=== PATIENT | male | born 1945 | race Caucasian/White ===

== ENCOUNTER 2017-03-24 10:02 | Emergency (ER) | payer OTHER, MEDICAID ==
[~2017-03-24] VITALS: Ht 160 cm; Wt 73.0 kg
[~2017-03-24 10:02] MED LIST: ATOR20TA PO; DOXA2TAB2 PO; INSU3INS6 SQ; LEVO137T2 PO; LISI-604 PO; METF10002 PO; OMEP20TA2 PO
[2017-03-24] MEDS ORDERED: ALBUTEROL (0.083%) 2.5MG/3ML NEB HHN SCH (11:00)
[2017-03-24 11:21] LABS: BASOPHILS % 0.6 % (0.0-2.0); EOSINOPHILS % 0.2 % (0.0-5.0); HEMATOCRIT. 39.9 % (42.0-52.0); HEMOGLOBIN. 13.4 g/dL (14.0-18.0); LYMPHOCYTES % 8.5 % (20.0-50.0); MEAN CORPUSCULAR HEMOGLOBIN 28.6 pg (28.0-32.0); MEAN CORPUSCULAR VOLUME 85.1 fL (80.0-94.0); MEAN PLATELET VOLUME 9.9 fl (7.4-10.4); MONOCYTES % 10.9 % (2.0-8.0); NEUTROPHILS % 79.8 % (40.0-76.0); PLATELET 165 x1000/uL (130-400); RED BLOOD CELL COUNT 4.69 mill/uL (4.7-6.1); RED CELL DISTRIBUTION WIDTH 13.7 % (11.6-14.6)
[2017-03-24 11:26] LABS: PROTHROMBIN TIME 10.8 sec (9.4-11.6)
[2017-03-24 11:36] LABS: CARBON DIOXIDE 27 mEq/L (21-32); CHLORIDE 104 mEq/L (98-107); TROPONIN I < 0.02 ng/mL (0.00-0.04)
[2017-03-24 13:24] VITALS: BP 134/78
== END 2017-03-24 13:30 | disposition home or self-care (01) ==
LOC: ER 11:40
DX: B34.9 Viral infection, unspecified (principal); E11.9 Type 2 diabetes mellitus without complications; I10 Essential (primary) hypertension; E78.00 Pure hypercholesterolemia, unspecified; J84.9 Interstitial pulmonary disease, unspecified; Z79.4 Long term (current) use of insulin; Z79.899 Other long term (current) drug therapy
CPT/HCPCS: 36415; 71010; 80053; 83880; 84484; 85025; 85610; 87040; 93005; 94644; 99285; J7611

== ENCOUNTER 2018-06-27 21:29 | Emergency (ER) | payer MEDICARE, MEDICAID ==
[~2018-06-27] VITALS: Ht 165.1 cm; Wt 79.4 kg
[~2018-06-27 21:29] MED LIST changes: +METF-416 PO; -METF10002 PO
[2018-06-27] MEDS ORDERED: MORPHINE SULFATE 4 MG/ML CPJ (NOT FOR IM USE) IV STA (22:33)
[2018-06-27] MEDS ORDERED: ONDANSETRON HCL 4MG/2ML INJ IV STA (22:33)
[2018-06-27 23:15] LABS: CLARITY URINE CLEAR (CLEAR); COLOR URINE YELLOW (YELLOW); KETONES URINE NEGATIVE (NEGATIVE); LEUKOCYTE ESTERASE URINE NEGATIVE (NEGATIVE); NITRITE URINE NEGATIVE (NEGATIVE); OCCULT BLOOD URINE NEGATIVE (NEGATIVE); PH URINE 8.5 (4.5-8.0); PROTEIN URINE NEGATIVE (NEGATIVE); SPECIFIC GRAVITY URINE 1.016 (1.005-1.030); UROBILINOGEN URINE 0.2 E.U./dL (0.2-1.0)
[2018-06-27 23:21] LABS: CHLORIDE 105 mEq/L (98-107)
[2018-06-27 23:22] LABS: *AMPHETAMINES SCREEN URINE NEGATIVE (NEGATIVE); *BARBITURATES SCREEN URINE NEGATIVE (NEGATIVE); *BENZODIAZEPINES SCREEN URINE NEGATIVE (NEGATIVE); *COCAINE SCREEN URINE NEGATIVE (NEGATIVE); CANNABINOID URINE SCREEN NEGATIVE (NEGATIVE); PHENCYCLIDINE URINE SCREEN NEGATIVE (NEGATIVE)
[2018-06-27 23:24] LABS: BASOPHILS % 0.4 % (0.0-2.0); EOSINOPHILS % 1.4 % (0.0-5.0); HEMATOCRIT. 38.8 % (42.0-52.0); HEMOGLOBIN. 13.3 g/dL (14.0-18.0); LYMPHOCYTES % 36.4 % (20.0-50.0); MEAN CORPUSCULAR HEMOGLOBIN 30.1 pg (28.0-32.0); MEAN CORPUSCULAR VOLUME 87.8 fL (80.0-94.0); MEAN PLATELET VOLUME 10.8 fl (7.4-10.4); MONOCYTES % 8.6 % (2.0-8.0); NEUTROPHILS % 53.2 % (40.0-76.0); PLATELET 160 x1000/uL (130-400); RED BLOOD CELL COUNT 4.42 mill/uL (4.7-6.1); RED CELL DISTRIBUTION WIDTH 13.3 % (11.6-14.6)
[2018-06-27 23:24] LABS: METHADONE URINE SCREEN NEGATIVE (NEGATIVE); OPIATES URINE SCREEN NEGATIVE (NEGATIVE)
[2018-06-27 23:25] LABS: ETHANOL BLOOD < 10 mg/dL
[2018-06-27] MEDS ORDERED: CEFTRIAXONE 1 G PREMIX 50 ML IV ONE (23:30)
[2018-06-27 23:36] LABS: PARTIAL THROMBOPLASTIN TIME 25.9 sec (23.4-31.0); PROTHROMBIN TIME 10.4 sec (9.1-11.1)
[2018-06-28] MEDS ORDERED: KETOROLAC 30MG/ML VIAL IV ONE
[2018-06-28 00:38] VITALS: BP 147/89
== END 2018-06-28 00:39 | disposition home or self-care (01) ==
LOC: ER 22:39 → CANBEDREQ 06-28 01:41
DX: N23 Unspecified renal colic (principal); R10.30 Lower abdominal pain, unspecified; R11.0 Nausea; E78.00 Pure hypercholesterolemia, unspecified; I10 Essential (primary) hypertension; E11.9 Type 2 diabetes mellitus without complications; Z79.4 Long term (current) use of insulin; Z79.899 Other long term (current) drug therapy
CPT/HCPCS: 36415; 71045; 74176; 80053; 80305; 80320; 81003; 83605; 83690; 83880; 84484; 85025; 85610; 85730; 87040; 87086; 93005; 96365; 96375; 99284; J0696; J2270; J2405; J1885; G0480

== ENCOUNTER 2023-06-12 16:36 | Inpatient (IN) | payer MEDICARE, MEDICAID ==
[~2023-06-12] VITALS: Ht 162.6 cm; Wt 64.4 kg
[~2023-06-12 16:36] MED LIST changes: -LISI-604 PO; +LISI20TA31 PO; -OMEP20TA2 PO; +OMEP20TA23 PO
[2023-06-12 17:44] LABS: BASOPHILS % 0.8 % (0.0-2.0); EOSINOPHILS % 2.1 % (0.0-5.0); HEMATOCRIT. 41.4 % (42.0-52.0); HEMOGLOBIN. 14.1 g/dL (14.0-18.0); LYMPHOCYTES % 34.5 % (20.0-50.0); MEAN CORPUSCULAR HEMOGLOBIN 30.5 pg (28.0-32.0); MEAN CORPUSCULAR HGB CONC 34.1 g/dL (31.0-37.0); MEAN CORPUSCULAR VOLUME 89.5 fL (80.0-94.0); MEAN PLATELET VOLUME 10.3 fl (7.4-10.4); MONOCYTES % 12.4 % (2.0-8.0); NEUTROPHILS % 50.2 % (40.0-76.0); PLATELET 159 x1000/uL (130-400); RED BLOOD CELL COUNT 4.63 mill/uL (4.7-6.1); RED CELL DISTRIBUTION WIDTH 14.1 % (11.6-14.6); WHITE BLOOD COUNT 5.8 x1000/uL (4.5-11.0)
[2023-06-12 17:52] LABS: PROTHROMBIN TIME 10.7 sec (9.6-11.0)
[2023-06-12 18:00] LABS: ALANINE AMINOTRANSFERASE 29 IU/L (10-49); ALBUMIN 4.2 g/dL (3.2-4.8); ASPARTATE AMINOTRANSFERASE 29 IU/L (<34); BILIRUBIN TOTAL 0.6 mg/dL (0.1-1.0); CALCIUM 8.8 mg/dL (8.7-10.4); CARBON DIOXIDE 26 mEq/L (21-32); CHLORIDE 106 mEq/L (98-107); CREATININE 0.7 mg/dL (0.6-1.3); GLUCOSE 103 mg/dL (70-105); PROTEIN TOTAL 6.7 g/dL (6.0-8.3); SODIUM 139 mEq/L (136-145); TROPONIN I HIGH SENSITIVITY 5 ng/L (3.0-53); UREA NITROGEN BLOOD 12 mg/dL (9-23)
[2023-06-13] VITALS (7 sets, daily range): BP systolic 129–153; BP diastolic 65–107; PULSE 53–72; RESP 16–19; TEMP 97.6–98.4
[2023-06-13] MEDS ORDERED: SITA100T11 MT (02:18)
[2023-06-13] MEDS ORDERED: DEXTROSE 50% WATER 50ML SYRINGE IV PRN (04:00)
[2023-06-13] MEDS: ACETAMINOPHEN 325MG TABLET PO PRN (06:05)
[2023-06-13] MEDS: BLOOD SUGAR DIAGNOSTIC STRIP TEST SCH (06:31)
[2023-06-13] MEDS: INSULIN LISPRO 100 UNITS/ML SUBCUT SCH (07:20)
[2023-06-13] MEDS: ASPIRIN 81MG TABLET PO SCH (08:17)
[2023-06-14] VITALS: BP 134/83; PULSE 52; RESP 16; TEMP 97.8
[2023-06-14 04:00] VITALS: BP 137/81; PULSE 67; RESP 20; TEMP 97.4
[2023-06-14 07:10] LABS: HEMATOCRIT 43.2 % (42.0-52.0); HEMOGLOBIN 15.1 g/dL (14.0-18.0); MEAN CORPUSCULAR HEMOGLOBIN 30.8 pg (28.0-32.0); MEAN CORPUSCULAR HGB CONC 34.8 g/dL (31.0-37.0); MEAN CORPUSCULAR VOLUME 88.5 fL (80.0-94.0); PLATELET 172 x1000/uL (130-400); RED BLOOD CELL COUNT 4.88 mill/uL (4.7-6.1); RED CELL DISTRIBUTION WIDTH 13.8 % (11.6-14.6); WHITE BLOOD COUNT 5.7 x1000/uL (4.5-11.0)
[2023-06-14 08:00] VITALS: BP 133/107; PULSE 62; RESP 13; TEMP 97.9
[2023-06-14 12:00] VITALS: BP 141/79; PULSE 74; RESP 19; TEMP 98
[2023-06-14 16:00] VITALS: BP 124/71; PULSE 64; RESP 22; TEMP 98.2
[2023-06-14 20:14] VITALS: BP 156/77; PULSE 65; RESP 14; TEMP 98.3
[2023-06-15] VITALS: BP 118/90; PULSE 57; RESP 19; TEMP 97.7
[2023-06-15 04:00] VITALS: BP 117/73; PULSE 64; RESP 21; TEMP 97.4
[2023-06-15 08:00] VITALS: BP 124/71; PULSE 64; RESP 22; TEMP 98.2
[2023-06-15 16:00] VITALS: BP 128/71; PULSE 63; RESP 21
[2023-06-15 20:00] VITALS: BP 141/88; PULSE 72; RESP 18; TEMP 97.7
[2023-06-16] VITALS: BP 121/67; PULSE 60; RESP 18; TEMP 97
[2023-06-16 04:00] VITALS: BP 115/71; PULSE 55; RESP 17; TEMP 98.8
[2023-06-16 08:00] VITALS: BP 117/70; PULSE 62; RESP 20; TEMP 97.9
[2023-06-16 12:00] VITALS: BP 108/75; PULSE 60; RESP 20; TEMP 98
[2023-06-16 13:09] LABS: FOLIC ACID (FOLATE) SERUM > 20.00 ng/mL (>5.38); VITAMIN B12 SERUM 1562 pg/mL (211-911)
[2023-06-16 16:00] VITALS: BP 126/73; PULSE 65; RESP 20; TEMP 98.2
[2023-06-16 16:17] VITALS: BP 126/73; PULSE 65; TEMP 98.2; O2SAT 95
== END 2023-06-16 17:00 | disposition home or self-care (01) | DRG 93 ==
LOC: ER 16:36 → 3WST 06-13 01:40
PROVIDERS: ADMIT Internal Medicine; ATTEND Internal Medicine
DX: R20.2 Paresthesia of skin (principal); I10 Essential (primary) hypertension; E78.00 Pure hypercholesterolemia, unspecified; E11.9 Type 2 diabetes mellitus without complications; E78.5 Hyperlipidemia, unspecified; E03.9 Hypothyroidism, unspecified; Z82.49 Family history of ischemic heart disease and other diseases of the circulatory system; R20.0 Anesthesia of skin
CPT/HCPCS: 36415; 70551; 71045; 72141; 73030; 80053; 80061; 82607; 82746; 82962; 83036; 84484; 85025; 85027; 93005; 99291; J1815